=== PATIENT | female | born 1965 | race Caucasian/White ===

== ENCOUNTER 2024-09-12 06:22 | Day surgery (SDC) | payer BC ==
[2024-09-12] MEDS: Lactated Ringers 1,000 ML IV SCH (07:11)
[2024-09-12] MEDS ORDERED: Propofol 200 MG/20 ML SDV ONE ×2 (07:45→08:01)
== END 2024-09-12 09:14 | disposition home or self-care (01) ==
LOC: JP.SDS 06:22
PROVIDERS: ATTEND Surgery
DX: Z12.11 Encounter for screening for malignant neoplasm of colon (principal); Z86.0101 Personal history of adenomatous and serrated colon polyps
CPT/HCPCS: 00812; 45378; J2704; J7120